=== PATIENT | female | born 2000 | race Caucasian/White ===

== ENCOUNTER 2021-04-17 17:25 | Emergency (ER) | payer BC ==
[~2021-04-17] VITALS: Ht 162.6 cm; Wt 47.6 kg
[2021-04-17 17:25] VITALS: BP 113/64
[2021-04-17] MEDS ORDERED: OXCARBAZEP300 MG/5 M PO (17:36)
[2021-04-17] MEDS ORDERED: ALLERGY REL5 MG/5 ML PO (17:36)
== END 2021-04-17 18:41 | disposition home or self-care (01) ==
LOC: M.ERS 17:25
DX: S83.094A Other dislocation of right patella, initial encounter (principal); W18.39XA Other fall on same level, initial encounter; Y93.89 Activity, other specified; Y92.89 Other specified places as the place of occurrence of the external cause; Y99.8 Other external cause status